=== PATIENT | male | born 1960 | race African-American/Black ===

== ENCOUNTER 2021-12-23 21:34 | Emergency (ER) | payer MEDICAID ==
[~2021-12-23] VITALS: Ht 167.6 cm; Wt 65.9 kg
[2021-12-23 22:27] LABS: GLUCOMETER DEV NAME(LOC) ERT.5; GLUCOSE,POINT OF CARE 108 MG/DL (70-110)
[2021-12-23 22:31] VITALS: BP 150/102
== END 2021-12-23 23:00 | disposition left against medical advice (07) ==
LOC: EMS 21:35
DX: F10.129 Alcohol abuse with intoxication, unspecified (principal); W19.XXXA Unspecified fall, initial encounter; Y93.89 Activity, other specified; Y92.89 Other specified places as the place of occurrence of the external cause; Y99.8 Other external cause status
CPT/HCPCS: 82962; 99283